=== PATIENT | female | born 1980 | race Caucasian/White ===

== ENCOUNTER 2017-07-21 16:37 | Emergency (ER) | payer BC, MEDICAID ==
[~2017-07-21] VITALS: Ht 160 cm; Wt 81.0 kg
[2017-07-21] MEDS ORDERED: IBUPROFEN 600MG TABLET PO ONE (18:15)
[2017-07-21] MEDS ORDERED: OXYCODONE HCL/ACETAMINOPHEN 5/325MG TABLET PO ONE (23:15)
[2017-07-22 00:38] VITALS: BP 135/88
== END 2017-07-22 00:39 | disposition home or self-care (01) ==
LOC: ER 16:37
DX: S82.451A Displaced comminuted fracture of shaft of right fibula, initial encounter for closed fracture (principal); X50.1XXA Overexertion from prolonged static or awkward postures, initial encounter; Y93.51 Activity, roller skating (inline) and skateboarding; Y92.9 Unspecified place or not applicable; F32.9 Major depressive disorder, single episode, unspecified; F17.200 Nicotine dependence, unspecified, uncomplicated
CPT/HCPCS: 29515; 73590; 73610; 81025; 99284; Z7610

== ENCOUNTER 2017-09-17 08:30 | Emergency (ER) | payer BC, MEDICAID ==
[~2017-09-17] VITALS: Ht 160 cm; Wt 82.0 kg
[2017-09-17] MEDS ORDERED: KETOROLAC 30MG/ML VIAL IV STA (10:14)
[2017-09-17 11:18] LABS: BASOPHILS % 0.2 % (0.0-2.0); EOSINOPHILS % 0.2 % (0.0-5.0); HEMATOCRIT. 35.4 % (36.0-48.0); HEMOGLOBIN. 12.2 g/dL (12.0-16.0); LYMPHOCYTES % 14.9 % (20.0-50.0); MEAN CORPUSCULAR HEMOGLOBIN 30.7 pg (28.0-32.0); MEAN CORPUSCULAR VOLUME 89.3 fL (81.0-99.0); MEAN PLATELET VOLUME 7.7 fl (7.4-10.4); MONOCYTES % 4.3 % (2.0-8.0); NEUTROPHILS % 80.4 % (40.0-76.0); PLATELET 343 x1000/uL (130-400); RED BLOOD CELL COUNT 3.97 mill/uL (4.2-5.4); RED CELL DISTRIBUTION WIDTH 15.4 % (11.6-14.6)
[2017-09-17 11:25] LABS: CHLORIDE 105 mEq/L (98-107)
[2017-09-17 11:32] LABS: D-DIMER 0.4 mg/L FEU (<0.50); INR 1.1
[2017-09-17 11:38] LABS: ETHANOL BLOOD < 10 mg/dL
[2017-09-17 11:47] LABS: HCG SCREEN NEGATIVE
[2017-09-17 12:19] VITALS: BP 148/84
== END 2017-09-17 12:21 | disposition home or self-care (01) ==
LOC: ER 08:52
DX: R07.89 Other chest pain (principal); F32.9 Major depressive disorder, single episode, unspecified; M79.604 Pain in right leg; M79.605 Pain in left leg; R10.10 Upper abdominal pain, unspecified; F12.10 Cannabis abuse, uncomplicated; F17.200 Nicotine dependence, unspecified, uncomplicated; Z96.641 Presence of right artificial hip joint
CPT/HCPCS: 36415; 71045; 80053; 83605; 83690; 84484; 84703; 85025; 85379; 85610; 93005; 96374; 99285; G0482; J1885